=== PATIENT | male | born 1955 | race African-American/Black ===

== ENCOUNTER 2018-02-14 10:37 | Day surgery (SDC) | payer MEDICARE, MEDICAID ==
--- NOTE | 2018-02-12 23:51 | HP ---
SHORT STAY HISTORY AND PHYSICAL DATE OF ADMISSION: 02/14/2018 HISTORY OF PRESENT ILLNESS: This is a 62-year-old male who comes in for colonoscopy because of histo ry of colon polyp. 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 Subsequently, he had a pathology. The patient has no specific GI symptoms. H is bowel movements are regular. No abdominal pain or rectal bleeding. 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 ALLERGIES: TRAMADOL. MEDICAL ILLNESSES: 1. Chronic acid reflux. 2. Colon polyp. 3. Seasonal allergies. 4. Hypertension. 5. Seizure disorder. 6. Hyperlipidemia. 7. Depression. 8. Chronic anxiety. PHYSICAL EXAMINATION: VITAL SIGNS: Pulse is 70, blood pressure 130/70. HEENT: Conjunctivae clear. CARDIOVASCULAR SYSTEM: First and second heart sounds normal. LUNGS: Clear to auscultation. ABDOMEN: Soft to palpate. No organomegaly. No tenderness. No masses. ADMITTING DIAGNOSIS: A 62-year-old -[place] male with a history of colon polyps. 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 The patient .
[2018-02-13 10:24] VITALS: BMI 31.8
--- NOTE | 2018-02-14 13:15 | OP ---
DATE OF PROCEDURE: 02/14/2018 PREOPERATIVE DIAGNOSES: A 62-year-old -[place]i male with a history of colon polyp with removal of a carcinoid tumor in the past. The patient . POSTOPERATIVE DIAGNOSES: 1. Multiple tiny polyps what appears to be hyperplastic, biopsied. 2. Sigmoid diverticular disease with mildly traumatic changes, possibly represent mild diverticulitis. 3. Hemorrhoids. OPERATIVE PROCEDURE: Colonoscopy with biopsy. PROCEDURE NOTE: The patient was placed on his left lateral position and was given sedation by the Anesthesia Department. A rectal exam was done. The scope was advanced into the rectum. No lesion felt on rectal exam. A Pentax video colonoscope was introduced into the rectum and advanced all the way into the cecum. The prep was good. The mucosa appears normal throughout the colon except for mild inflammatory changes over the sigmoid colon area. The appendiceal orifice, ileocecal valve, cecum, well seen. No pathology seen. The ascending colon, hepatic flexure, transverse colon, splenic flexure, and descending colon, no pathology seen. The sigmoid colon showed scattered diverticular disease. There are some inflammatory changes consisting of mucosal edema, erythema over the sigmoid colon. The rectum showed multiple small polyps. They appear to be hyperplastic polyp. Couple of polyps were removed. The rectum also showed hemorrhoids. DISCHARGE PLANNING: This is a 62-year-old -[place]i male who came for colonoscopy because of history of colon polyp. He underwent colonoscopy with biopsy. DISCHARGE RECOMMENDATIONS: 1. High-fiber diet. 2. Metamucil. 3. To come back to clinic in 2 weeks. [facility]
[2018-02-14] MEDS ORDERED: Lidocaine 1% PF 5 ML VIAL ONE (13:33)
[2018-02-14] MEDS ORDERED: PROPOFOL 200 MG/20 ML VIAL ONE (13:33)
== END 2018-02-14 10:46 | disposition home or self-care (01) ==
LOC: SDC 10:37
PROVIDERS: ATTEND Internal Medicine Gastroenterology
PROC: 0DBP8ZX Excision of Rectum, Via Natural or Artificial Opening Endoscopic, Diagnostic (ICD-10-PCS; principal; 2018-02-14)
DX: Z12.11 Encounter for screening for malignant neoplasm of colon (principal); K62.1 Rectal polyp; K57.30 Diverticulosis of large intestine without perforation or abscess without bleeding; K21.9 Gastro-esophageal reflux disease without esophagitis; I10 Essential (primary) hypertension; G40.909 Epilepsy, unspecified, not intractable, without status epilepticus; E78.5 Hyperlipidemia, unspecified; F32.9 Major depressive disorder, single episode, unspecified; F41.9 Anxiety disorder, unspecified; K64.9 Unspecified hemorrhoids; Z86.010 Personal history of colon polyps; Z79.899 Other long term (current) drug therapy; Z98.890 Other specified postprocedural states
CPT/HCPCS: 88305; J2001; J2704

== ENCOUNTER 2019-02-14 09:55 | Outpatient (CLI) | payer MEDICARE, MEDICAID ==
--- NOTE | 2019-02-14 10:18 | RAD ---
Exam: XR Hand Lt 3 View STANDARD HISTORY: Left hand pain COMPARISON: None FINDINGS: There is mild scattered osteoarthritis involving the interphalangeal joints and first metacarpal phal angeal joint. There is an oval-shaped circumscribed lytic lesion within the proximal phalanx left thumb measuring 11 mm x 5 mm which has mild endosteal scalloping, and there is suggestion of a thin c ircumscribed sclerotic margin. There is no osseous destruction seen. This is favored to represent a nonaggressive lesion. No acute fracture, dislocation, or other acute osseous abnormality is identified. IMPRESSION: 1. Findings favored to represent a nonaggressive lytic lesion within the proximal phalanx left thumb. However, if the patient has pain localized to this region or persistent pain that does not resolve, MRI is recommended for further evaluation. 2. Scattered osteoarthritis. 3. No acute osseous abnormality left hand.
== END 2019-02-14 09:56 | disposition home or self-care (01) ==
LOC: RAD-FRANK 09:55
PROVIDERS: ATTEND Internal Medicine
DX: S69.91XA Unspecified injury of right wrist, hand and finger(s), initial encounter (principal); M19.041 Primary osteoarthritis, right hand; M18.11 Unilateral primary osteoarthritis of first carpometacarpal joint, right hand

== ENCOUNTER 2020-01-30 04:49 | Emergency (ER) | payer MEDICARE, MEDICAID ==
[2020-01-30 06:16] LABS: Bacteria/HPF 3+ HPF (None Seen); Bilirubin Negative (Negative); Blood, Urine 2+ (Negative); Clarity Turbid (Clear); Glucose, Urine (Dipstick) Normal (Negative); Ketone, Urine Negative (Negative); Leukocyte 500 Leu/uL (Negative); Nitrite Negative (Negative); Protein, Urine (Dipstick) 30 mg/dL (Neg-Trace); Specific Gravity, Urine 1.016 (1.002-1.036); Squamous Epithelial 0-3 HPF (0-3); Urobilinogen Normal mg/dL (Less than 2); WBC/HPF Greater than 50 HPF (0-3); pH, Urine 5.5 (5.0-9.0)
[2020-01-30] MEDS ORDERED: Azithromycin 250 MG TAB ONE (06:22)
[2020-01-30] MEDS ORDERED: cefTRIAXone\\ROCEPHIN 250 MG VIAL ONE (06:22)
[2020-01-30] MEDS ORDERED: Lidocaine 1% PF 5 ML VIAL ONE (06:24)
[2020-01-30 21:05] LABS: Chlam.trachomatis by PCR,Urine Not Detected (NotDetected)
== END 2020-01-30 06:32 | disposition home or self-care (01) ==
LOC: ERS 04:49
DX: N34.1 Nonspecific urethritis (principal); I10 Essential (primary) hypertension; F41.9 Anxiety disorder, unspecified; F32.9 Major depressive disorder, single episode, unspecified; Z79.899 Other long term (current) drug therapy
CPT/HCPCS: 81003; 81015; 87491; 87591; 96372; 99283; J0696

== ENCOUNTER 2020-05-05 06:52 | Outpatient (CLI) | payer MEDICARE, MEDICAID ==
[2020-05-05 12:26] LABS: Bilirubin Neg (Negative); Blood, Urine 10 (Negative); Clarity Clear (Clear); Glucose, Urine (Dipstick) Normal (Negative); Ketone, Urine Negative (Negative); Leukocyte Negative (Negative); Nitrite Negative (Negative); Protein, Urine (Dipstick) Negative (Neg-Trace); Urobilinogen Normal mg/dL (Less than 2)
[2020-05-05 12:35] LABS: Hemoglobin 14.1 g/dL (14.0-18.0); Mean Corpuscular HGB CONC 33.5 G/DL (32.0-36.0); Mean Corpuscular Hemoglobin 29.7 PG (27.0-33.0); Mean Corpuscular Volume 88.8 fl (80.0-100.0); Mean Platelet Volume 10.1 fl (7.4-10.4); Platelet Count 344 10x3/uL (130-400); Red Blood Cell (RBC) Count 4.74 10x6/uL (4.40-5.80); White Blood Cell (WBC) Count 7.1 10x3/uL (4.5-11.0)
[2020-05-05 12:51] LABS: Anion Gap 15 mmol/L (10-20); BUN (Urea Nitrogen) 16 mg/dL (8.4-25.7); Calc. Creatinine Clearance 0 mL/min (70-130); Calcium 10.2 mg/dL (7.8-10.44); Carbon Dioxide 27 mmol/L (23-31); Chloride 104 mmol/L (98-107); Estimated GFR-MDRD 75; Glucose 99 mg/dL (80-115); Potassium 4.2 mmol/L (3.5-5.1); Sodium 142 mmol/L (136-145)
[2020-05-05 12:58] LABS: INR-International Normal Ratio 1.1; PTT 30.8 sec (22.0-33.0); Prothrombin Time 11.1 sec (9.5-12.1)
[2020-05-05 13:13] LABS: RBC/HPF 0-3 HPF (0-3); WBC/HPF None Seen HPF (0-3)
[2020-05-05 13:14] LABS: Bacteria/HPF Rare-Few HPF (None Seen)
--- NOTE | 2020-05-05 17:00 | EKG ---
Test Reason : Blood Pressure : / mmHG Vent. Rate : 075 BPM Atrial Rate : 075 BPM P-R Int : 220 ms QRS Dur : 092 ms QT Int : 386 ms P-R-T Axes : 065 024 014 degrees QTc Int : 431 ms Sinus rhythm with 1st degree A-V block Moderate voltage criteria for LVH, may be normal variant Borderline ECG No previous ECGs available Confirmed by DR. Nighat THORPE ([id number]) on 05/05/2020 5:00:23 PM Referred By: MIKE Confirmed By:DR. Nighat THORPE
[2020-05-05 19:13] LABS: SARS-CoV-2 MS2 Positive; SARS-CoV-2 N Gene Negative; SARS-CoV-2 S Gene Negative; SARS-CoV-2 by NAA Not Detected (NotDetected); SARS-CoV-2 orf1ab Negative
== END 2020-05-05 06:53 | disposition home or self-care (01) ==
LOC: LABBT 06:52
PROVIDERS: ATTEND Urology
DX: Z01.818 Encounter for other preprocedural examination (principal); Z01.812 Encounter for preprocedural laboratory examination; Z20.828 Contact with and (suspected) exposure to other viral communicable diseases; N40.1 Benign prostatic hyperplasia with lower urinary tract symptoms; N32.9 Bladder disorder, unspecified; R35.0 Frequency of micturition; R39.14 Feeling of incomplete bladder emptying; R10.2 Pelvic and perineal pain; N13.39 Other hydronephrosis; N52.01 Erectile dysfunction due to arterial insufficiency
CPT/HCPCS: 80048; 81001; 85027; 85610; 85730; 87086; 93005; U0003; 87635; 93010

== ENCOUNTER 2020-05-08 10:19 | Day surgery (SDC) | payer MEDICARE, MEDICAID ==
[2020-05-07 10:16] VITALS: BMI 27.1
[2020-05-08] MEDS ORDERED: PROPOFOL 200 MG/20 ML VIAL ONE (11:25)
[2020-05-08] MEDS ORDERED: Ondansetron PF 4 MG/2 ML Vial ONE (11:25)
[2020-05-08] MEDS ORDERED: Levofloxacin 500 mg/D5W 100 ml Premix Bag ONE (14:50)
[2020-05-08] MEDS ORDERED: B & O ONE (16:29)
[2020-05-08] MEDS ORDERED: Midazolam HCl 2 mg/2 ml Vial ONE (16:35)
[2020-05-08] MEDS ORDERED: Fentanyl 100 MCG/2 ML VIAL ONE ×2 (16:35→17:44)
--- NOTE | 2020-05-08 23:40 | OP ---
DATE OF PROCEDURE: 05/08/2020 SERVICE: Urology. PREOPERATIVE DIAGNOSIS: Bladder lesion. POSTOPERATIVE DIAGNOSIS: Bladder lesion. PROCEDURE PERFORMED: Cystoscopy with biopsy of bladder lesion x3 and fulguration of area for approximately 2 to 5 cm. INDICATION FOR PROCEDURE: Mr. Summers is a 64-year-old black male, who initially presented to me for urinary symptoms. He was having some weak stream and difficulty urinating. He was noted to have a small amount of micro hematuria. We elected to perform a cystoscopy which demonstrated concerning appearing bladder lesions on the right lateral bladder wall. These appeared like early urothelial carcinoma, although could not be entirely sure. I recommended that we perform biopsies of these areas before proceeding forward with any other treatment. Risks and benefits of the surgery discussed and he agreed to proceed forward. DESCRIPTION OF PROCEDURE: After identification of armband and verification of consent, the patient was brought back to the operating room, where he underwent total intravenous anesthesia. He was then placed in dorsal lithotomy position and prepped and draped in usual sterile fashion. After appropriate time-out, a lubricated 22-Serbian rigid cystoscope was introduced per urethra into the bladder. Attention was turned to the area of concern, which demonstrated micro papillary type lesions in an area of approximately 3-4 cm with multiple small lesions scattered throughout this region. The remainder of the bladder demonstrated large vascularity, but no obvious tumors or lesions noted anywhere else. Both ureters were in the orthotopic location. Using cold cup biopsy forceps, three biopsies were taken in the region of the papillary tumor ensuring that the largest of these papillary type lesions were removed. During this process, the patient became a little agitated and was no longer be able to kept still and sedated with TIVA, so he was converted to general anesthesia with LMA. Once settled down, the Bugbee electrode was used to cauterize the bleeding areas and destroyed the remaining lesions that were not biopsied. A total fulguration of area approximately 3-4 cm was performed. Upon completion, the there was excellent hemostasis in this location. There did not appear to be any other lesions or concerning findings throughout the rest of the bladder and no additional lesions that were concerning left behind. The bladder was then emptied and refilled to ensure there was no additional bleeding and nothing was noted except for some mild bleeding near the bladder neck, which was due to instrumentation alone. This did not require any intervention, so the cystoscope was used to drain the bladder and then removed. A B and O suppository was placed in the patient's rectum. He was then taken out of position, awakened, taken to PACU for recovery in stable condition. COMPLICATIONS: None. ESTIMATED BLOOD LOSS: Minimal. RETAINED TUBES AND DRAINS: None. SPECIMENS: Bladder biopsy x3. DISPOSITION: The patient will be discharged home and follow up with me in approximately 1 to 2 weeks for a postoperative check. If his biopsies are negative, I think we can proceed forward with treatment of his prostate for urinary symptoms. If his biopsies are positive, we will discuss treatment of his bladder cancer before considering treatment of his urinary symptoms subsequently. Job ID: [id number]
== END 2020-05-08 20:20 | disposition home or self-care (01) ==
LOC: SDC 10:19
PROVIDERS: ATTEND Urology
PROC: 0T5B8ZZ Destruction of Bladder, Via Natural or Artificial Opening Endoscopic (ICD-10-PCS; principal; 2020-05-08)
DX: D41.4 Neoplasm of uncertain behavior of bladder (principal); N40.1 Benign prostatic hyperplasia with lower urinary tract symptoms; R35.0 Frequency of micturition; R39.14 Feeling of incomplete bladder emptying; N52.01 Erectile dysfunction due to arterial insufficiency; I10 Essential (primary) hypertension; E78.00 Pure hypercholesterolemia, unspecified; M19.90 Unspecified osteoarthritis, unspecified site; F17.290 Nicotine dependence, other tobacco product, uncomplicated; Z79.82 Long term (current) use of aspirin; Z79.899 Other long term (current) drug therapy
CPT/HCPCS: 88305; J1956; J2250; J2405; J2704; J3010

== ENCOUNTER 2020-08-08 07:36 | Outpatient (CLI) | payer MEDICARE, MEDICAID | END 2020-08-08 07:37 | disposition home or self-care (01) | LOC: RAD-FRANK 07:36 | PROVIDERS: ATTEND Nurse Practitioner Family | DX: M25.551 Pain in right hip (principal); M54.5 Low back pain; M47.817 Spondylosis without myelopathy or radiculopathy, lumbosacral region | CPT/HCPCS: 72100 ==

== ENCOUNTER 2020-09-01 10:29 | Outpatient (CLI) | payer MEDICARE, MEDICAID ==
[2020-09-01 11:37] LABS: Hemoglobin 13.3 g/dL (13.5-17.5); Mean Corpuscular HGB CONC 33.3 g/dL (32.0-36.0); Mean Corpuscular Hemoglobin 29.1 pg (27.0-33.0); Mean Corpuscular Volume 87.3 fl (81.2-95.1); Mean Platelet Volume 9.5 fl (7.4-10.4); Platelet Count 443 10x3/uL (150-450); RBC Distribution Width 13.2 % (11.5-14.5); Red Blood Cell (RBC) Count 4.57 10x6/uL (4.32-5.72); White Blood Cell (WBC) Count 7.4 10x3/uL (3.5-10.5)
[2020-09-01 11:47] LABS: Anion Gap 13 mmol/L (10-20); BUN (Urea Nitrogen) 22 mg/dL (8.4-25.7); Calc. Creatinine Clearance 0 mL/min (70-130); Calcium 10.1 mg/dL (7.8-10.44); Carbon Dioxide 26 mmol/L (23-31); Chloride 105 mmol/L (98-107); Glucose 116 mg/dL (80-115); Potassium 3.7 mmol/L (3.5-5.1); Sodium 140 mmol/L (136-145)
[2020-09-01 12:02] LABS: INR-International Normal Ratio 1.1; PTT 30.1 sec (22.0-33.0); Prothrombin Time 11.2 sec (9.5-12.1)
[2020-09-01 12:28] LABS: Bilirubin Neg (Negative); Blood, Urine 25 (Negative); Clarity Clear (Clear); Glucose, Urine (Dipstick) Normal (Negative); Ketone, Urine Negative (Negative); Leukocyte 100 (Negative); Nitrite Negative (Negative); Protein, Urine (Dipstick) Negative (Neg-Trace); Specific Gravity, Urine 1.015 (1.002-1.036); Urobilinogen Normal mg/dL (Less than 2)
[2020-09-01 12:59] LABS: RBC/HPF 0-3 HPF (0-3); Squamous Epithelial 0-3 HPF (0-3)
[2020-09-01 13:00] LABS: Bacteria/HPF 3+ HPF (None Seen)
[2020-09-01 22:23] LABS: SARS-CoV-2 PCR by NAA Not Detected (NotDetected)
== END 2020-09-01 10:30 | disposition home or self-care (01) ==
LOC: LABBT 10:29
PROVIDERS: ATTEND Urology
DX: Z01.818 Encounter for other preprocedural examination (principal); Z20.822 Contact with and (suspected) exposure to COVID-19; D49.4 Neoplasm of unspecified behavior of bladder; N40.1 Benign prostatic hyperplasia with lower urinary tract symptoms; R35.0 Frequency of micturition; R39.14 Feeling of incomplete bladder emptying; R10.2 Pelvic and perineal pain; N13.39 Other hydronephrosis; N52.01 Erectile dysfunction due to arterial insufficiency
CPT/HCPCS: 80048; 81001; 85027; 85610; 85730; 87077; 87086; 87186; 93005; U0003; U0005; 87635; 93010

== ENCOUNTER 2020-09-04 07:11 | Day surgery (SDC) | payer MEDICARE, MEDICAID ==
[2020-09-03 12:47] VITALS: BMI 26.6
[2020-09-04] MEDS ORDERED: Levofloxacin 500 mg/D5W 100 ml Premix Bag ONE (08:59)
[2020-09-04] MEDS ORDERED: B & O ONE (09:39)
[2020-09-04] MEDS ORDERED: Iothalamate Meglumine 60% 50 ML VIAL FS ONE (09:39)
[2020-09-04] MEDS ORDERED: Fentanyl 100 MCG/2 ML VIAL ONE (09:42)
[2020-09-04] MEDS ORDERED: Famotidine/PF 20 mg/2ml Vial ONE (09:42)
[2020-09-04] MEDS ORDERED: Lidocaine 1% PF 5 ML VIAL ONE (10:01)
[2020-09-04] MEDS ORDERED: Metoclopramide HCl 10 MG/2 ML VIAL ONE (10:01)
[2020-09-04] MEDS ORDERED: Ondansetron PF 4 MG/2 ML Vial ONE (10:01)
[2020-09-04] MEDS ORDERED: PROPOFOL 200 MG/20 ML VIAL ONE (10:01)
[2020-09-04] MEDS ORDERED: HYDROcodone/Acetaminophen 5/325 mg Tablet ONE (11:13)
== END 2020-09-04 12:25 | disposition home or self-care (01) ==
LOC: SDC 07:11
PROVIDERS: ATTEND Urology
PROC: 0TBB8ZX Excision of Bladder, Via Natural or Artificial Opening Endoscopic, Diagnostic (ICD-10-PCS; principal; 2020-09-04)
DX: D49.4 Neoplasm of unspecified behavior of bladder (principal); N40.1 Benign prostatic hyperplasia with lower urinary tract symptoms; R39.14 Feeling of incomplete bladder emptying; R35.0 Frequency of micturition; N52.01 Erectile dysfunction due to arterial insufficiency; I10 Essential (primary) hypertension; E78.00 Pure hypercholesterolemia, unspecified; M19.90 Unspecified osteoarthritis, unspecified site; J30.2 Other seasonal allergic rhinitis; F17.290 Nicotine dependence, other tobacco product, uncomplicated; Z79.899 Other long term (current) drug therapy; Z88.5 Allergy status to narcotic agent
CPT/HCPCS: 88305; J1956; J2405; J2704; J2765; J3010; Q9961; S0028

== ENCOUNTER 2020-12-16 08:50 | Outpatient (CLI) | payer MEDICARE, MEDICAID | END 2020-12-16 08:51 | disposition home or self-care (01) | LOC: ULT 08:50 | PROVIDERS: ATTEND Nurse Practitioner Family | DX: R59.0 Localized enlarged lymph nodes (principal) | CPT/HCPCS: 76536 ==

== ENCOUNTER 2021-05-07 10:27 | Outpatient (CLI) | payer MEDICARE, MEDICAID | END 2021-05-07 10:28 | disposition home or self-care (01) | LOC: RAD-FRANK 10:27 | PROVIDERS: ATTEND Nurse Practitioner Family | DX: M79.642 Pain in left hand (principal) ==

== ENCOUNTER 2022-04-20 08:32 | Outpatient (CLI) | payer OTHER ==
[2022-04-20] MEDS ORDERED: Iopamidol-370 76% 500 ML 1 ML ONE (08:43)
== END 2022-04-20 08:33 | disposition home or self-care (01) ==
LOC: BICCT 08:32
PROVIDERS: ATTEND Student in an Organized Health Care Education/Training Program
DX: Q89.2 Congenital malformations of other endocrine glands (principal); M48.02 Spinal stenosis, cervical region; M47.12 Other spondylosis with myelopathy, cervical region; M25.78 Osteophyte, vertebrae
CPT/HCPCS: 70491; 82565; Q9967

== ENCOUNTER 2023-01-03 08:39 | Outpatient (CLI) | payer OTHER, MEDICAID | END 2023-01-03 08:40 | disposition home or self-care (01) | LOC: BICMRI 08:39 | PROVIDERS: ATTEND Orthopaedic Surgery Hand Surgery | DX: M19.131 Post-traumatic osteoarthritis, right wrist (principal); M25.431 Effusion, right wrist; M67.431 Ganglion, right wrist ==

== ENCOUNTER 2023-01-13 08:13 | Outpatient (CLI) | payer OTHER, MEDICAID | END 2023-01-13 08:14 | disposition home or self-care (01) | LOC: RAD 08:13 | PROVIDERS: ATTEND Orthopaedic Surgery Hand Surgery | DX: M19.131 Post-traumatic osteoarthritis, right wrist (principal) ==

== ENCOUNTER 2023-06-30 10:46 | Emergency (ER) | payer MEDICAID, OTHER ==
[2023-06-30] MEDS ORDERED: Ketorolac Tromethamine 30 MG (1 mL) VIAL ONE (11:16)
== END 2023-06-30 11:30 | disposition home or self-care (01) ==
LOC: ERS 10:46
DX: K02.9 Dental caries, unspecified (principal); I10 Essential (primary) hypertension; E78.5 Hyperlipidemia, unspecified; F17.290 Nicotine dependence, other tobacco product, uncomplicated; Z79.899 Other long term (current) drug therapy
CPT/HCPCS: 96372; 99282; J1885

== ENCOUNTER 2024-02-29 11:57 | Emergency (ER) | payer MEDICARE, OTHER ==
[2024-02-29] MEDS ORDERED: Boostrix 0.5 ML (Tdap) VIAL (>/=7 yrs of age) ONE (13:03)
[2024-02-29 13:16] LABS: #Basophils 0.04 10x3/uL (0.0-0.2); %Basophils 0.7 % (0.0-1.0); %Eosinophils 0.7 % (0.0-10.0); %Lymphocytes 56.4 % (21.0-51.0); %Monocytes 10.7 % (0.0-10.0); %Neutrophils 31.1 % (42.0-75.0); Hematocrit 49.9 % (42.0-52.0); Hemoglobin 17.2 g/dL (14.0-18.0); Mean Corpuscular HGB CONC 34.5 g/dL (32.0-36.0); Mean Corpuscular Hemoglobin 30.1 pg (27.0-31.0); Mean Corpuscular Volume 87.2 fL (78.0-98.0); Mean Platelet Volume 9.6 fL (7.4-10.4); Platelet Count 268 10x3/uL (130-400); RBC Distribution Width 13.6 % (11.5-14.5); Red Blood Cell (RBC) Count 5.72 mill/uL (4.70-6.10)
[2024-02-29 13:32] LABS: Prothrombin Time 13.1 sec (12.0-14.7)
[2024-02-29 13:33] LABS: PTT 32.3 sec (22.9-36.1)
[2024-02-29 13:35] LABS: ALT (SGPT) 28 U/L (8-55); AST (SGOT) 23 U/L (5-34); Albumin 4.1 g/dL (3.4-4.8); Alkaline Phosphatase 135 U/L (40-110); Anion Gap 13 mmol/L (10-20); BUN (Urea Nitrogen) 17 mg/dL (8.4-25.7); Bilirubin, Total 0.4 mg/dL (0.2-1.2); Calc. Creatinine Clearance 0 mL/min (70-130); Calcium 10.7 mg/dL (7.8-10.44); Carbon Dioxide 23 mmol/L (23-31); Chloride 105 mmol/L (98-107); Estimated GFR 63; Globulin 4.3 g/dL (2.4-3.5); Glucose 108 mg/dL (80-115); Potassium 3.7 mmol/L (3.5-5.1); Protein, Total 8.4 g/dL (5.8-8.1); Sodium 137 mmol/L (136-145)
== END 2024-02-29 14:41 | disposition home or self-care (01) ==
LOC: ERS 11:57
DX: T63.001A Toxic effect of unspecified snake venom, accidental (unintentional), initial encounter (principal); M79.661 Pain in right lower leg; I10 Essential (primary) hypertension; E78.5 Hyperlipidemia, unspecified; F17.290 Nicotine dependence, other tobacco product, uncomplicated; Z86.73 Personal history of transient ischemic attack (TIA), and cerebral infarction without residual deficits; Z23 Encounter for immunization; Z79.899 Other long term (current) drug therapy
CPT/HCPCS: 36415; 80053; 85025; 85610; 85730; 90471; 90715

== ENCOUNTER 2024-03-10 10:49 | Emergency (ER) | payer MEDICARE, MEDICAID ==
[2024-03-10 12:01] LABS: Bacteria/HPF 3+ HPF (None Seen); Bilirubin Negative (Negative); Blood, Urine Negative (Negative); CAUTI Indications for Culture Acute Hematuria; Clarity Clear (Clear); Glucose, Urine (Dipstick) Normal (Negative); Ketone, Urine Negative (Negative); Leukocyte 500 Leu/uL (Negative); Nitrite Negative (Negative); Protein, Urine (Dipstick) 20 mg/dL (Neg-Trace); RBC/HPF 0-3 HPF (0-3); Specific Gravity, Urine 1.008 (1.002-1.036); Squamous Epithelial 0-3 HPF (0-3); Urobilinogen Normal mg/dL (Less than 2); WBC/HPF 21-50 HPF (0-3)
[2024-03-10 12:03] LABS: Urine Culture Reflex Yes Yes
[2024-03-10 16:48] LABS: Chlam.trachomatis by PCR,Urine Not Detected (NotDetected); GC N.gonorrhoeae PCR,UrineVOID Not Detected (NotDetected)
== END 2024-03-10 12:22 | disposition home or self-care (01) ==
LOC: ERS 10:49
DX: L29.0 Pruritus ani (principal); N39.0 Urinary tract infection, site not specified; F17.290 Nicotine dependence, other tobacco product, uncomplicated; I10 Essential (primary) hypertension
CPT/HCPCS: 81001; 87077; 87086; 87186; 87491; 87591; 99283